=== PATIENT | female | born 1965 | race Caucasian/White ===

== ENCOUNTER → 2020-03-11 | Outpatient (CLI) | payer OTHER ==
[2015-11-01 11:00] VITALS: BP 113/75
[~2020-03-11] MED LIST: CRESTOR5 MG PO; CYCL5TAB PO; DOCU-109 PO; DULO60CA6 PO; HYDR-2765 PO; IBUP200T77 PO; LANS15TA6 PO; LISI1TAB20 PO; NAPR250T6 PO; PRAV20TA2 PO; TRAM50TA PO; VENL150C6 PO; [UNRECOGNIZED DRUG - OTHER]
== END | disposition home or self-care (01) ==
LOC: SURGPAT 07:47
PROVIDERS: ATTEND Surgery
DX: Z01.812 Encounter for preprocedural laboratory examination (principal); Z20.828 Contact with and (suspected) exposure to other viral communicable diseases
CPT/HCPCS: U0003-CS

== ENCOUNTER 2020-03-15 09:10 | Day surgery (SDC) | payer OTHER ==
[~2020-03-15] VITALS: Ht 161.3 cm; Wt 75.5 kg
[~2020-03-15 09:10] MED LIST changes: +ACETAMINOPHEN 500 MG TABLET PO PRN; +HYDROmorphone 2 MG/ML VIAL IV PRN; +IV RINGERS,LACTATED 1000ML 1,000 ML IV SCH; +MORPHINE SULFATE 2 MG/ML VIAL. IV PRN; +ONDANSETRON PF 4 MG/2 ML VIAL. IV PRN; +PROCHLORPERAZINE 10 MG/2 ML VIAL. IV PRN; +ceFAZolin SODIUM IV Push 1 GM VIAL. IVP PRN; +fentaNYL PF VIAL 100 MCG/2 ML VIAL IV PRN
[2020-03-15] MEDS ORDERED: PROPOFOL 10 MG/ML (20ML) VIAL. IV ONE (10:03)
[2020-03-15] MEDS ORDERED: ONDANSETRON PF 4 MG/2 ML VIAL. ONE (10:03)
[2020-03-15] MEDS ORDERED: LIDOCAINE 2% PF 5 ML VIAL. ONE (10:03)
[2020-03-15] MEDS ORDERED: DEXAMETHASONE SOD PHOS 4 MG/ML VIAL ONE (10:03)
[2020-03-15] MEDS ORDERED: MIDAZOLAM HCL/PF 2 MG/2 ML VIAL. ONE (10:05)
[2020-03-15] MEDS ORDERED: BUPIVACAINE-EPI 0.5%-1:200000 MPF 30 ML VIAL. ONE (10:44)
[2020-03-15] MEDS ORDERED: VANCOMYCIN 1GM IVPB FOR OMNI 0 ML ONE (11:08)
[2020-03-15] MEDS ORDERED: fentaNYL PF VIAL 100 MCG/2 ML VIAL ONE (11:18)
[2020-03-15] MEDS ORDERED: SEVOFLURANE 31 TO 60 MINUTES. IH ONE (11:27)
[2020-03-15] MEDS ORDERED: KETOROLAC 30 MG/ML VIAL. ONE (11:33)
--- NOTE | 2020-03-15 11:38 | PDOC4 ---
Operative Note Operative Note Date: 2019 at 1136 Preoperative diagnosis: Right breast mass Postoperative diagnosis: Same Procedure: Excisional right breast mass biopsy Surgeon: Temo Specimen: Right breast mass Dictation: Patient is a 54-year-old female had an abnormal mammogram and a palpable mass of her right breast in the upper inner quadrant. Procedure of excisional biopsy was explained to the patient detail risk-benefit were also discussed including bleeding infection alternatives to this procedure also discussed with the patient who seemed to understand and gave both verbal and written consent to have the procedure performed. Patient was taken to the operating room placed in the supine position general anesthesia was initiated once patient was sleeping intubated her right breast and chest were prepped and draped usual sterile fashion using ChloraPrep. An area over the mass in the right breast upper inner quadrant was injected with quarter percent Marcaine with epinephrine elliptical incision of skin was made this was carried down through the subcutaneous tissue using electrocautery to fully excise the mass. The mass was sent to the pathologist marked with the lateral portion of the specimen with a long suture in the superior portion of the specimen with a short suture. The wound was irrigated and suctioned dry hemostasis was controlled electrocautery and the wound was then closed in 2 layers the deep layer running 3-0 Vicryl and the skin was reapproximated for subcuticular Monocryl Mastisol Steri-Strips and island dressings were applied. Patient was awakened and extubated in the operating room taken to recovery in stable condition all sponge instrument needle counts listed as correct estimated blood loss 10 mL ROC PIMENTEL MD Mar 15, 2020 11:38
--- NOTE | 2020-03-15 11:40 | DISCH ---
DISCHARGE INSTRUCTIONS Condition on Discharge Condition on Discharge: Stable Activity After Discharge Activity Instructions for Disc: Activity as tolerated, Progressive ambulation Exercise Instruction after Dis: Progress as tolerated Diet after Discharge Diet after Discharge: Regular Additional Diet Restrictions: resume home diet Diet Texture: Regular Wound Incision Care Wound/Incision Care: No wound care needed Other wound/incision instructi: Denise shower in 24 hours Contacting the DRMarlene after DC Call your doctor for: If your condition worsens Follow-Up Follow up with: Dr. Pimentel in 2 weeks Treatment/Equipment after DC Adaptive Equipment Issued: None ROC PIMENTEL MD Mar 15, 2020 11:40
[2020-03-15] MEDS ORDERED: HYDROcodone/APAP 5/325MG 1 TAB TABLET PO ONE (12:00)
[2020-03-15] MEDS ORDERED: HYDROcodone/APAP 5/325MG 1 TAB TABLET PO PRN (12:00)
[2020-03-15] MEDS ORDERED: HYDR-3164 PO (12:06)
[2020-03-15 12:25] VITALS: BP 113/62
--- NOTE | 2020-03-21 12:06 | PATHOLOGY ---
[facility] Accession Number: [id number] . 01 Material submitted: . breast - RIGHT BREAST MASS LONG STITCH LATERAL SHORT STITCH SUPERIOR. Modifiers: right . 01 Clinical history: . RIGHT BREAST MASS . 02 Diagnosis: Skin and breast tissue, right breast mass excisional biopsy: - MALIGNANT SPINDLE CELL NEOPLASM. SEE COMMENT. (JP:mml; 03/21/2020) [facility] 03/21/2020 1147 Local . 02 Comment: Sections of the right breast mass excisional biopsy reveal a malignant neoplasm. The neoplasm is composed of a proliferation of spindle-shaped cells having a storiform arrangement. The malignant cells have eosinophilic cytoplasm, and possess enlarged markedly pleomorphic nuclei containing prominent nucleoli. The tumor is fairly well-circumscribed but does show focal infiltration of surrounding fatty tissue. The tumor shows central cystic degeneration. Typical and atypical mitotic figures are readily demonstrated. There are several scattered tumor calcifications. The tumor shows a possible minute focus of ductal differentiation adjacent to the main tumor mass. The surrounding breast tissue shows no evidence of ductal carcinoma in situ. A panel of immunoperoxidase stains is obtained on block A8 and yields the following results: . AE1/AE3: Tumor cells negative CK5/6: Tumor cells largely negative with possible rare tumor cells versus entrapped benign epithelial elements positive P63: Tumor cells focally positive High molecular weight cytokeratin: Tumor cells largely negative with possible rare tumor cells versus entrapped benign epithelial elements positive. Cytokeratin SADIA: Tumor cells largely negative with possible rare tumor cells versus entrapped benign epithelial elements positive Vimentin: Tumor cells diffusely positive Irene-alyssa red: Tumor cells negative Smooth Muscle Actin: Tumor cells positive Muscle Specific Actin: Tumor cells focally positive CD34: Tumor cells negative . 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 The differential diagnosis includes metaplastic carcinoma with mesenchymal differentiation, and primary versus secondary sarcoma of the breast. The tumor measures 1.8 cm in greatest dimension, and is 2 mm from the closest superior margin and 3 mm from the closest posterior margin. The case is being forwarded to [facility] for consultation, the results of which will be reported separately. . The case is also examined by Dr. Marita Roca, who concurs with the diagnosis. . Special stains performed, immunoperoxidase stains for (block A8): AE1/AE3, CK5/6, P63, High molecular weight cytokeratin, Cytokeratin SADIA, Vimentin, Irene-alyssa red, SMA, Muscle Specific Actin, CD34 . (JPM:mml; 03/21/2020) . 02 Electronically signed: . Cristian Ken MD, Pathologist NPI- [id number] . 01 Gross description: . The specimen is received in formalin, labeled "Ophelia Alberta, Rt breast mass" and consists of an oriented 45 g lumpectomy specimen with a long suture lateral and short superior. The breast tissue measures 5.6 cm L-M, 4.8 cm S-I, 3.9 cm A-P with a loosely attached anterior unremarkable elliptical segment of pink-centeno skin measuring 3.2 x 0.8 cm. The specimen is inked as follows: superior-blue, inferior-green, medial-red, lateral-yellow, anterior-orange, and posterior-black. It is sectioned from lateral to medial into 13 slices revealing a circumscribed pink mass in slices 4-8 measuring 1.8 x 1.7 cm that is to margins as follows: 0.2 cm superior, 1.0 cm anterior, 0.3 cm posterior, greater than 1.0 cm lateral, greater than 2 cm medial, and 2.1 cm inferior. The uninvolved parenchyma is yellow lobulated with minimal fibrous streaks and no additional masses or lesions. Child Care Associate sections to include the entire mass are submitted as follows: . A1-A2: Slice 1 lateral, perpendicular A3: Child Care Associate slice 4 A4-A7: Entire slice 5 mass to margins A8-A9: Child Care Associate slice 6 mass to include mass A10: Child Care Associate slice 7 mass to include mass A11-A12: Child Care Associate slice 8 to include mass A13-A14: Slice 14 medial, perpendicular . The specimen was obtained at 11:20 AM on 03/15/2020 and placed in formalin at 11:25 AM. The cold ischemic time is 5 minutes and the total formalin fixation time is greater than 6 hours less than 72 hours. (SDY; 03/16/2020) [facility] 03/21/2020 1017 Local . 02 Pathologist provided ICD-10: C50.911 . 02 CPT . 857129, [id number], [id number] Specimen Comment: A courtesy copy of this report has been sent to [phone], [phone] Specimen Comment: [id number] Specimen Comment: Report sent to / DR CIFUENTES Performed at: 01 [facility] [address], [place], [place] [id number] MD Puneet Dang MD Phone: [phone] Performed at: 02 [facility] [address], [place] [id number] MD Cristian eKn MD Phone: [phone]
== END 2020-03-15 12:50 | disposition home or self-care (01) ==
LOC: SURG 09:10
PROVIDERS: ATTEND Surgery
DX: N63.12 Unspecified lump in the right breast, upper inner quadrant (principal); C50.911 Malignant neoplasm of unspecified site of right female breast; I10 Essential (primary) hypertension; E78.5 Hyperlipidemia, unspecified; Z88.2 Allergy status to sulfonamides; Z88.8 Allergy status to other drugs, medicaments and biological substances; Z83.3 Family history of diabetes mellitus; Z79.899 Other long term (current) drug therapy; Z87.891 Personal history of nicotine dependence; Z72.89 Other problems related to lifestyle; Z98.890 Other specified postprocedural states
CPT/HCPCS: 19120; 88307; 88341; 88342; A7015; J0690; J1100; J1885; J2250; J2405; J2704; J3010; J3370